=== PATIENT | male | born 2000 | race African-American/Black ===

== ENCOUNTER 2021-06-03 14:03 | Emergency (ER) | payer MEDICAID ==
[~2021-06-03] VITALS: Ht 177.8 cm; Wt 65.8 kg
[2021-06-03 14:11] VITALS: BP 129/83
[2021-06-03] MEDS ORDERED: TETANUS-DIPTH-ACEL PERTUSSIS 0.5ML SYR Tdap IM ONE (15:00)
[2021-06-03] MEDS ORDERED: IBUPROFEN 600 MG TAB PO ONE (15:00)
[2021-06-03] MEDS ORDERED: LIDOCAINE 1% HCL (LOCAL ANESTH.) INJ 20ML MDV ID ONE (15:00)
== END 2021-06-03 16:34 | disposition home or self-care (01) ==
LOC: ER 14:03
DX: S01.511A Laceration without foreign body of lip, initial encounter (principal); F17.210 Nicotine dependence, cigarettes, uncomplicated; F12.10 Cannabis abuse, uncomplicated; V00.131A Fall from skateboard, initial encounter; Y93.89 Activity, other specified; Y92.89 Other specified places as the place of occurrence of the external cause; Y99.8 Other external cause status
CPT/HCPCS: 12011; 70450; 90471; 90715; 99284; J2001

== ENCOUNTER 2022-05-10 11:14 | Emergency (ER) | payer MEDICAID ==
[~2022-05-10] VITALS: Ht 177.8 cm; Wt 65.1 kg
[2022-05-10] MEDS ORDERED: FAMOTIDINE (10MG/ML) 2ML VL IV ONE (11:45)
[2022-05-10] MEDS ORDERED: LORazepam 2MG/ML-1ML VIAL IV ONE (11:45)
[2022-05-10] MEDS ORDERED: SODIUM CHLORIDE 0.9% 2,000 ML IV ONE (11:45)
[2022-05-10] MEDS ORDERED: ALUM & MAG HYDROX-SIMETH LIQ(MAALOX) 30 ML PO ONE (11:45)
[2022-05-10 12:20] LABS: Basophils # (auto) 0 10 ^3/uL (0-0.2); Basophils % (auto) 0.1 % (0.0-2.0); Eosinophils # (auto) 0 10 ^3/uL (0-0.8); Eosinophils % (auto) 0.1 % (0.0-7.0); Lymphocytes # (auto) 0.5 10 ^3/uL (0.4-5.4); Mean Corpuscular Hemoglobin 29.7 pg (28.0-32.0); Monocytes # (auto) 0.7 10 ^3/uL (0-1.3); White Blood Cell 6.7 10^3/uL (4.4-10.8)
[2022-05-10 12:21] LABS: Albumin 4.3 g/dL (3.4-5.0); Calcium 9.4 mg/dL (8.5-10.1); Magnesium 2.7 mg/dL (1.6-2.6)
[2022-05-10 12:22] LABS: Hematocrit 55.7 % (41.0-53.0); Hemoglobin 18.9 g/dL (13.5-17.5); Lymphocytes % (auto) 7.8 % (10.0-50.0); Mean Corpuscular Volume 87.2 fL (80.0-100.0); Monocytes % (auto) 10.9 % (0.0-12.0); Neutrophils # (auto) 5.5 10 ^3/uL (1.6-8.6); Neutrophils % (auto) 81.1 % (37.0-80.0); Red Blood Cells 6.38 10^6/uL (4.5-5.90)
[2022-05-10 12:31] LABS: BUN/Creatinine Ratio 17.6; Bilirubin, Total 0.8 mg/dL (0.2-1.0); Total Protein 8.7 g/dL (6.4-8.2)
[2022-05-10] MEDS ORDERED: ONDA-144 PO (14:38)
[2022-05-10 15:34] VITALS: BP 130/88
== END 2022-05-10 15:33 | disposition home or self-care (01) ==
LOC: ER 11:14
DX: N17.9 Acute kidney failure, unspecified (principal); E86.0 Dehydration; F17.210 Nicotine dependence, cigarettes, uncomplicated; F12.10 Cannabis abuse, uncomplicated
CPT/HCPCS: 36415; 71045; 80053; 83735; 83880; 85025; 93005; 96361; 96374; 96375; 99285; J2060; J3490; J7030